=== PATIENT | female | born 1975 | race Caucasian/White ===

== ENCOUNTER 2022-12-05 10:46 | Outpatient (REF) | payer MEDICAID, SELFPAY ==
--- NOTE | 2022-12-05 10:30 | PAPFT_PTH ---
PATIENT: Francheska Baxter LOC: [facility] U#:[id number] AGE/SX: 47/F ROOM: RE12/05/[address]: America Vale NP : 1975 BED: DIS: 12/05/2022 SPEC #: [id number] RECD: 12/05/22 13:25 STATUS: CARLTON GRANADO #: [id number] DOE: 12/05/22 10:[address]: America Vale NP DEPT: [facility] Cytology RECD BY: Merly Nielson ENTERED: 12/05/22 13:25 SP TYPE: PAPFT OTHR DR: Jayne Johnson Tissues: 1 - CX/ENDOCX FOR PAP SMEARS Procedures: PAP THIN PREP/UVM Screening HPV DNA PROBE Comments: [id number]
== END 2022-12-05 10:47 | disposition home or self-care (01) ==
LOC: LBN 10:46
PROVIDERS: PCP Family Medicine; Visit Provider Nurse Practitioner Women's Health
DX: Z12.4 Encounter for screening for malignant neoplasm of cervix (principal); Z11.51 Encounter for screening for human papillomavirus (HPV)
CPT/HCPCS: 88142; 87624

== ENCOUNTER → 2022-12-13 00:57 | Outpatient (CLI) | payer MEDICAID, SELFPAY ==
--- NOTE | 2022-12-13 08:00 | DI.MAMMO_ITS ---
Exam(s) MAMMO SCREENING EXAM: MAMMO SCREENING CLINICAL HISTORY: screening. TECHNIQUE: Bilateral full field digital CC and MLO mammographic images were obtained with 3D tomosyn thesis and utilizing computer aided detection (CAD). COMPARISON: Prior mammograms were reviewed. FINDINGS: There has been no significant change in the appearance and distribution of the fibroglandular tissue. There are no new spiculated masses nor malignant appearing microcalcification groups. There is no significant architectural distortion nor skin thickening-retraction. IMPRESSION: No radiographic evidence of malignancy. BI-RADS Category 1 - Negative Breast Density - Category B - Scattered areas of fibroglandular density Breast density Category C or D implies that the patient has dense breast tissue. Dense breast tissue can make it harder to find cancer on a mammogram. Dense breast tissue is also associated with an incr eased risk of breast cancer. This information about the result of the mammogram report was provided to the patient to raise their awareness. Use this report when you speak with the patient about their risks for breast cancer, which includes their family history. At that time, you may recommend additional screening tests (Ultrasoun d or MRI) as these tests may add significant information. A negative radiographic report should not delay biopsy if a dominant or clinically suspicious mass is present. Up to ten percent of cancers are not identified on mammography. A negative report may reinforce clinical impression. Adenosis and dense breasts may obscure an underlying neoplasm. False positive reports average 6 to 10%. Patient will receive a letter notifying them of these results.
== END ==
PROVIDERS: PCP Family Medicine; Visit Provider Nurse Practitioner Women's Health
DX: Z12.31 Encounter for screening mammogram for malignant neoplasm of breast (principal)
CPT/HCPCS: 77063; 77067

== ENCOUNTER 2023-08-31 11:24 | Day surgery (SDC) | payer MEDICAID, SELFPAY ==
--- NOTE | 2023-08-31 00:01 | W.COLOREPORT ---
Date of service: 08/31/23 Time of Service: 14:00 Colonoscopy Report Date of procedure: 08/31/23 Pre-op diagnosis general: Family history of colon cancer in a second-degree family member Post-op diagnosis procedure note: same Surgeon: Louise William Anesthesia Type: General:No Airway Estimated blood loss (mL): 0 Pathology: none sent Complications: None Disposition: same day Prep: Miralax/Dulcolax Retraction Time: 12 Procedure Description: After informed consent was obtained the patient was taken to the procedure room and placed in a left decubitous position. Monitors were applied and a time out was done. The patients name, date of , procedure, allergies to medications and metal in their body was reviewed. The patient was then sedated. Once sedated and comfortable a rectal exam was done. External exam was normal. Internal exam revealed a normal sphincter tone and no palpable masses. The scope was then introduced and retrofelexed. No internal hemorrhoids were identified. The scope was then advanced to the cecum without difficulty. The TI and appendiceal orifice were identified. The scope was then slowly retracted over 12 minutes back into the rectum. There are no AVMs, diverticula, or polyps visualized today. Mucosa is pink and healthy with a normal vascular pattern. The scope was removed and the patient was woken up and taken back to Same day surgery in stable condition. The patient tolerated the procedure well and there were no immediate complications. Follow up: The patient should follow up in 10 years unless they develop changes in bowel habits or other new gastrointestinal complaints. [place] Bowel Prep [place] Bowel Prep Right Colon: 3 Left Colon: 3 Transverse Colon: 3 Total Score: 9
--- NOTE | 2023-08-31 00:02 | PDOC.DSDIS_ITS ---
Date of service: 08/31/23 Time of Service: 13:57 Discharge Plan Disposition Patient Disposition: Home Condition: Good Discharge Details Reason For Visit: Colon cancer screening Attending Provider: Louise William Primary Care Provider: Roxanna Cintron Home Meds and New Rx's Prescriptions: Continued fluticasone propionate [Flovent Diskus] 100 mcg/actuation blister with device 1 inh inhalation Q12H cholecalciferol (vitamin D3) 50 mcg (2,000 unit) capsule 50 mcg PO DAILY loratadine [Allergy Relief (loratadine)] 10 mg tablet 10 mg PO DAILY duloxetine [Cymbalta] 20 mg capsule,delayed release(DR/EC) 40 mg PO BID levothyroxine [Synthroid] 50 MCG tablet 50 mcg PO DAILY Discontinued bisacodyl [Dulcolax (bisacodyl)] 5 mg tablet,delayed release (DR/EC) 5 mg PO ONCE Qty: 4 0RF Rx Instructions: Take per colonoscopy instructions provided by ordering providers office polyethylene glycol 3350 17 gram/dose powder 17 g PO ONCE Qty: 238 0RF Rx Instructions: Take per colonoscopy instructions provided by ordering providers office Discharge Instructions Additional Instructions: DSU Colonoscopy Post- Op Instructions Instructions for Everyone who is given Anesthesia: For your safety, please do the following for the next twenty-four (24) hours: *Do Not operate a motor vehicle (car, truck, motorcycle, etc.) *Do Not drink alcoholic beverages or use any recreational drugs for the first 24 hours or while taking pain medications. The medications in your body may have a reaction that can be dangerous. *Do Not make any important decisions or sign any important papers. Findings: Normal colon Follow up: Repeat colonoscopy in 10 years time. Of course, you should continue to have a yearly physical exam including a rectal exam. If you should ever notice any pain or difficulty having a bowel movement, blood in the stool, unexplained weight loss, or change in your bowel habits, please contact your health provider 1. No lifting over 20 pounds or strenuous activity for the first 24 hours after your procedure. After 24 hours there are no restrictions on your activity but you may feel fatigued for a few days. 2. After you arrive home you may have a light meal and return to your normal diet as you can tolerate it without feeling sick to your stomach. 3. You may have a bloated, gaseous feeling in your belly (abdomen) after a colonoscopy. Passing gas and belching will help. Walking or lying down on your left side with your knees flexed may relieve the discomfort. Call the office at [phone] (Office) or [phone] (Hospital) right away if you notice any of the following: a.Vomiting of blood or ?coffee ground stools?. b.Rectal bleeding 1Tbsp, blood clots or continuous bleeding. c.Severe belly (abdominal) pain. d.A hard distended belly (abdomen) and an inability to pass gas. 4. Please don?t expect to have a normal BM (bowel movement) for 2-3 days after your procedure. 5. If there are questions regarding the findings of your procedure, please contact your doctor 6. If you are unable to contact your doctor with a problem, contact the hospital at [phone]. 7. Continue all your regular medications unless directed otherwise. I understand the above instructions and have no questions. Signature of Patient or Adult Escort Name of Responsible Adult Escort Signature of Nurse Date/Time Activity:: see above Diet:: see above Discharge Orders Discharge Orders: Discharge Order (Routine); Ordered 08/31/23 Ordered By: Louise William DS: Diagnosis Discharge Diagnosis (1) Stress incontinence: Status: Acute (2) Eating disorder: (3) High blood pressure: (4) Hypothyroid: (5) Asthma: (6) Encounter for colonoscopy in patient with family history of colon cancer: Status: Acute Asessment and Plan: The patient is seen and examined after their colonoscopy.? The patient has been able to pass gas.? They are not having abdominal pain.? They have been able to tolerate liquids and a snack.? They do not have any nausea or vomiting.? They are not having any chest pain or shortness of breath.??? They are not having any rectal bleeding. Their vital signs have been stable-see nursing notes. We discussed findings during their colonoscopy, and any biopsies that were done/polyps that were removed. The patient will be sent a letter with any biopsy results, and when to repeat the colonoscopy.-see discharge instructions. Patient was given explicit instructions to follow-up regarding colonoscopy-refer to discharge instructions.? We reviewed resumption of medications. Patient verbalized understanding and discharged in stable and satisfactory condition- See nursing notes. Family members a second-degree family member. Patient needs to get screened every 10 years
[2023-08-31 11:45] VITALS: BP 124/95; PULSE 83; RESP 16; TEMP 36.1; O2SAT 99
[2023-08-31] MEDS: Lactated Ringers 1,000 ML 80 ML IV (11:59)
[2023-08-31 12:43] VITALS: BMI 40.1
--- NOTE | 2023-08-31 12:43 | ANES.PREOP_ITS ---
General Info Date of Service Date Performed: 08/31/23 Height: 5 ft 2 in Weight: 99.6 kg Body Mass Index (BMI): 40.1 Surgical Procedure: Operation Date: 08/31/23 12:05 Proposed Procedure Side Surgeon p Colonoscopy Louise William DO Actual Procedure Side Surgeon p Colonoscopy Not Applicable Louise William, Meds Allergies and Home Medications Allergies Allergy/AdvReac Type Severity Reaction Status Date / Time No Known Allergies Allergy Unverified 08/31/23 11:42 Home Medication Medication Instructions Recorded levothyroxine 50 mcg tablet 50 mcg PO DAILY 05/11/17 (Synthroid) cholecalciferol (vitamin D3) 50 50 mcg PO DAILY 12/05/22 mcg (2,000 unit) capsule duloxetine 20 mg capsule,delayed 40 mg PO BID 12/05/22 release (Cymbalta) fluticasone propionate 100 1 inh inhalation Q12H 12/05/22 mcg/actuation blister powder for inhalation (Flovent Diskus) loratadine 10 mg tablet (Allergy 10 mg PO DAILY 12/05/22 Relief (loratadine)) Current Visit Medications: Current Medications Generic Name Dose Route Start Last Admin Trade Name Freq PRN Reason Stop Dose Admin Hyoscyamine Sulfate 0.125 mg 08/31/23 00:00 Hyoscyamine 0.125 Mg Sl/Oral/Chew SL 09/30/23 00:00 DIRECTED PRN Ringer's Solution 1,000 mls @ 80 mls/hr 08/31/23 06:00 08/31/23 11:59 IV 08/31/23 23:59 80 mls/hr INFUSION SACHIN Administration IV Miscellaneous Supplies 1 each 08/31/23 06:00 Iv Access IV 08/31/23 23:59 DIRECTED SACHIN Ondansetron HCl 4 mg 08/31/23 00:00 Ondansetron 4 Mg/2 Ml Vial IVP 09/30/23 00:00 Q4H PRN PRN Nausea / Vomiting Sodium Chloride 0 ml 08/31/23 06:00 Normal Saline Flush 10 Ml Syr IV 08/31/23 23:59 PRN PRN Sodium Chloride 0 ml 08/31/23 06:00 Normal Saline 10 Ml Vial IJ 08/31/23 23:59 DIRECTED PRN Sterile Water 0 ml 08/31/23 06:00 Water,Injection,Sterile 10 Ml Vial IJ 08/31/23 23:59 DIRECTED PRN PFSH Active Problems Active Problems: Problem Status Onset Code Encounter for colonoscopy in patient with family history of colon cancer Z12.11, Z80.0 Stress incontinence N39.3 Medical History Medical History Anemia Anxiety Asthma Depression Eating disorder High blood pressure History of endometriosis Hypothyroid Takes synhroid Surgical History Surgical History Ligation of fallopian tube 2006 Tobacco Smoking/Tobacco Use Status: Never Alcohol Alcohol Intake: never Substance Use Substance use: Never Substance use type: does not use Prental History History 4 Para 4 Hx # Term Pregnancies Multiple births Hx # Pregnancies Ectopic pregnancies AB induced Hx Number of Living Children AB spontaneous Past Pregnancies Del. Date GA/Weeks # Preg Succ Route Wgt Sex Labor Lgth Anesth esia Location Prov Complic Unknown No Yes 3883.885 g Male Unknown No Yes 3373.593 g Male Unknown No Yes 3572.04 g Male Unknown No Yes 3373.593 g Female Vital Signs and Lab Results Vital Signs Most Recent Vital Signs in EMR: Most Recent Vital Signs Temp Pulse Resp BP Pulse Ox 36.1 C L 83 16 124/95 H 99 08/31/23 11:45 08/31/23 11:45 08/31/23 11:45 08/31/23 11:45 08/31/23 11:45 Point of Care Results Point of Care Results: POC- Test(urine) Negative 08/31/23 11:44 Lab Results Blood Type / Crossmatch: No Data to Display Complete Blood Count: No Data to Display Complete Metabolic Panel: No Data to Display Liver Function Panel: No Data to Display Coagulation Panel: No Data to Display Cardiac Panel: No Data to Display Arterial Blood Gas: No Data to Display Venous Blood Gas: No Data to Display Pancreas Panel: No Data to Display Thyroid Panel: No Data to Display Infectious Disease: No Data to Display Blood Cultures: No Data to Display Toxicology Panel: No Data to Display Panel: No Data to Display Anesthesia Assessment and Plan Anesthesia History Personal History: No History of Anesthesia Complications Family History: No Family History of Anesthesia Complications Exercise Tolerance Exercise Tolerance: Metabolic Equivalents>4 Pertinent Negatives Pertinent Negatives: No Symptoms of GERD Cardiac & Pulmonary Exam Cardiac Exam: Normal S1/S2 Heart Sounds Pulmonary Exam: Clear Bilateral Breath Sounds Implantable Cardiac Device Does patient have a Pacemaker or an ICD?: No Airway Exam Known Difficult Airway: No Mallampati Class: 2 Mouth Opening: Normal (> 3cm) Thyromental Distance: Greater than 3 cm Neck Range of Motion: Full ROM Neck Circumference: Normal Teeth Condition: Normal Dentition ASA Classification ASA Score: ASA 2 Emergency Case?: No NPO Status NPO Status: NPO Clears >2 hours, Solids >8 hours Status Status: Not Relevant due to Medical History Anesthesia Plan Resuscitation Status: Full Code Anesthesia Technique: General Anesthesia Airway Planned: Natural Airway Monitors Used: Standard Monitors
[2023-08-31 13:48] VITALS: BP 122/81; PULSE 85; RESP 18; TEMP 36.4; O2SAT 97
--- NOTE | 2023-08-31 13:57 | W.ANESPOSTOP ---
Postoperative Evaluation Date, Time and Location Date Performed: 08/31/23 Time Performed: 13:57 Patient Location: Day Surgery Unit Vital Signs Most Recent Imported Vital Signs: Most Recent Vital Signs Temp Pulse Resp BP Pulse Ox 36.4 C L 85 18 122/81 97 08/31/23 13:48 08/31/23 13:48 08/31/23 13:48 08/31/23 13:48 08/31/23 13:48 Pain Score Most Recent Pain Score: Most Recent Pain Score Pain Level 0 08/31/23 13:48 Assessment Mental Status: Awake (Alert & Oriented to Patient Baseline) Airway and Respiratory Function: Patent airway with normal (patient baseline) respiratory exam Cardiovascular Function: Hemodynamically Stable Hydration Status: Adequately Hydrated Nausea & Vomiting: No Nausea or Vomiting Pain: Pt. Denies Any Pain Peripheral Nerve Block: Patient did not receive a nerve block
[2023-08-31 14:18] VITALS: BP 137/97; PULSE 81; RESP 16; TEMP 36.6; O2SAT 98
== END 2023-08-31 15:10 | disposition home or self-care (01) ==
LOC: SUR 11:25
PROVIDERS: PCP Internal Medicine; Visit Provider Surgery
PROC: 0DJD8ZZ Inspection of Lower Intestinal Tract, Via Natural or Artificial Opening Endoscopic (ICD-10-PCS; CPT 45378; principal; 2023-08-31 12:00)
DX: Z12.11 Encounter for screening for malignant neoplasm of colon; Z80.0 Family history of malignant neoplasm of digestive organs
CPT/HCPCS: 45378; 81025; J2704